=== PATIENT | male | born 1950 | race Two or more races ===

== ENCOUNTER → 2021-09-05 | Outpatient (CLI) | payer BC ==
[~2021-09-05] MED LIST: ALLO100T PO; LOSA50TA41 PO; TAMS-11 PO
== END | disposition home or self-care (01) ==
LOC: LAB 10:57
PROVIDERS: ATTEND Surgery
DX: Z01.812 Encounter for preprocedural laboratory examination (principal); Z20.822 Contact with and (suspected) exposure to COVID-19
CPT/HCPCS: 87426

== ENCOUNTER → 2021-09-07 | Day surgery (SDC) | payer BC ==
[~2021-09-07] VITALS: Ht 175.3 cm; Wt 97.5 kg
[~2021-09-07] MED LIST changes: +BUPIVACAINE HCL/PF 0.5% (5MG/ML) 10ML ONE; +CEFAZOLIN SODIUM 1000MG/VIAL ONE; +DEXAMETHASONE 4MG/ML 1ML VIAL ONE; +GLYCOPYRROLATE 0.2 MG/ML 2ML VIAL ONE; +HYDROCODONE/ACETAMINOPHEN 5/325MG TABLET PO PRN; +HYDROMORPHONE HCL/PF 2MG/ML (OR) ONE; +HYDROMORPHONE HCL/PF 2MG/ML CPJ IV PRN; +LABETALOL 5MG/ML SYR 20 MG/4 ML SYRINGE IV PRN; +LACTATED RINGERS 1,000 ML IV SCH; +MEPERIDINE HCL/PF 25MG/ML CPJ IV PRN; +ONDANSETRON HCL 4MG/2ML INJ IV PRN; +SKIN ADHESIVE 0.7 GM EA TOP ONE
== END | disposition home or self-care (01) ==
LOC: OR 07:40
PROVIDERS: ATTEND Surgery
DX: R19.09 Other intra-abdominal and pelvic swelling, mass and lump (principal); D18.01 Hemangioma of skin and subcutaneous tissue; I10 Essential (primary) hypertension; N40.0 Benign prostatic hyperplasia without lower urinary tract symptoms; M10.9 Gout, unspecified; Z79.899 Other long term (current) drug therapy; Z98.890 Other specified postprocedural states; Z88.0 Allergy status to penicillin; Z88.1 Allergy status to other antibiotic agents; Z88.2 Allergy status to sulfonamides
CPT/HCPCS: 11406; 88304; J0690; J1100; J1170; J3490